=== PATIENT | male | born 2000 | race Caucasian/White ===

== ENCOUNTER 2024-07-22 17:01 | Emergency (ER) | payer SELFPAY ==
[2024-07-22] VITALS (8 sets, daily range): BP systolic 118–129; BP diastolic 57–77
[~2024-07-22] VITALS: Ht 180.3 cm; Wt 72.5 kg
[2024-07-22] MEDS ORDERED: METHOCARBAMOL 1,000 MG/10 ML VIAL IV ONE (17:20)
[2024-07-22] MEDS ORDERED: ONDANSETRON HCl 4 MG/2 ML SDV IV ONE (17:20)
[2024-07-22] MEDS ORDERED: LACTATED RINGER'S 1,000 ML IV ONE ×3 (17:20→19:15)
[2024-07-22 17:57] LABS: BASO% 0.2 % (0-3); EOS% 0.1 % (0-8); HEMATOCRIT 49.8 % (39.0-50.0); HEMOGLOBIN 17.6 g/dl (14.0-18.0); IMMATURE GRANULOCYTES 0.2 % (0.0-5.0); LYMPH% 7.9 % (15-41); MEAN CELL VOLUME 86.8 fL CALC (80.0-100.0); MEAN CORPUSCULAR HGB 30.7 pG CALC (26.0-32.0); MEAN CORPUSCULAR HGB CONC 35.3 g/dL CAL (32.0-36.0); MONO% 4.3 % (2-13); NEUT# 15.93 thou/uL (1.82-7.42); NEUT% 87.3 % (42-76); RED BLOOD COUNT 5.74 mill/uL (4.70-6.10)
[2024-07-22 17:59] LABS: ALKALINE PHOSPHATASE 92 u/l (38-126); ANION GAP 25 (6-22 (CALC)); BILIRUBIN, TOTAL 1.4 mg/dL (0.2-1.3); BUN 24 mg/dL (9-20); BUN/CREATININE RATIO 10 (12-20 (CALC)); CARBON DIOXIDE 16 mmol/l (22-30); CHLORIDE 105 mmol/l (95-108); CPK 194 u/l (55-170); CREATININE 2.5 mg/dL (0.7-1.3); ESTIMATED GFR 36 ML/MIN (>=90 (CALC)); POTASSIUM 4.3 mmol/l (3.5-5.1); SGOT/AST 40 u/l (17-59); SODIUM 142 mmol/l (137-146)
[2024-07-22 18:05] LABS: TOTAL PROTEIN 10.6 g/dL (6.3-8.2)
[2024-07-22 18:12] LABS: ALBUMIN > 6.0 g/dL (3.2-5.0)
[2024-07-22 19:39] LABS: URINE BLOOD DIPSTICK Negative (NEGATIVE); URINE GLUCOSE - DIPSTICK Negative (NEGATIVE); URINE KETONE 80 mg/dL (NEGATIVE); URINE LEUK ESTERASE Negative (NEGATIVE); URINE NITRITE - DIPSTICK Negative (Negative); URINE PH 5.5 (4.5-8.0); URINE PROTEIN - DIPSTICK 100 mg/dL (NEG-TRACE); URINE SPECIFIC GRAVITY >=1.030; URINE UROBILINOGEN - DIPSTICK 0.2 E.U./dL (0.2)
[2024-07-22 19:43] LABS: URINE COLOR Yellow
[2024-07-22 19:48] LABS: URINE RBC 0-2 RBC/hpf (0-5); URINE WBC 0-2 WBC/hpf (0-5)
[2024-07-22 19:49] LABS: URINE CALCIUM OXALATE CRYSTALS MODERATE lpf; URINE MUCUS MANY hpf (NONE-FEW)
[2024-07-22 20:35] LABS: POTASSIUM 4.1 mmol/l (3.5-5.1)
[2024-07-22 20:36] LABS: CREATININE 1.5 mg/dL (0.7-1.3)
[2024-07-22] MEDS ORDERED: PROMETHAZINE HY25 M1 PO (20:40)
== END 2024-07-22 21:15 | disposition home or self-care (01) | DRG 923 ==
LOC: ED 17:01
PROVIDERS: Nurse Practitioner
DX: T67.5XXA Heat exhaustion, unspecified, initial encounter (principal); N17.9 Acute kidney failure, unspecified; X30.XXXA Exposure to excessive natural heat, initial encounter; E86.0 Dehydration